=== PATIENT | female | born 1970 | race Caucasian/White ===

== ENCOUNTER 2016-09-15 12:24 | Inpatient (IN) | payer BC ==
[2016-09-15] MEDS ORDERED: 0.9 % SODIUM CHLORIDE 1,000 ML BAG IV ONE (12:39)
--- NOTE | 2016-09-15 12:48 | Emergency Department Record ---
History of Present Illness - General Chief Complaint: Abdominal Pain Stated Complaint: ABD PAIN Time Seen by Provider: 09/15/16 12:38 Source: Patient Mode of Arrival: Ambulatory Limitations: No limitations - History of Present Illness Initial Comments: 46 yo female presents with epigastric pain this week. She saw Dr Hooper as an outpatient. The patient has had labs on two occasions. Her Lipase was noted to be mildly elevated on 09/14 at 416. She had a CT scan on 09/14 as well that was read as negative for acute process. It was unremarkable for a cause of her pain. Dr Hooper repeated the labs today and her Lipase was increased to 426. He called, requesting hydration and re-evaluation. She has had her gallbladder removed in the past. Dr Hooper expressed a concern that it could be medication related. She rarely consumes alcohol. Her appetite is reduced with nausea and some vomiting that started Sunday. No blood in the vomit. She is having normal bowel movements. MD Complaint: Abdominal pain -: Days(s) Location: Epigastric Radiation: Epigastric, RUQ Migration to: Epigastric Severity: Moderate Quality: Aching Consistency: Constant Improves With: Nothing Worsens With: Eating Associated Symptoms: Anorexia, Vomiting - Related Data Home Medications Medication Instructions Recorded Confirmed Last Taken Desvenlafaxine Succinate [Pristiq 50 mg PO DAILY 11/28/14 09/15/16 01/03/15 ER] Nebivolol HCl [Bystolic] 5 mg PO DAILY 11/28/14 09/15/16 01/02/15 Pramipexole Di-HCl [Mirapex] 0.25 mg PO QHS 11/28/14 09/15/16 01/02/15 Sumatriptan Succinate [Imitrex] 4 mg SQ DAILY PRN 01/03/15 09/15/16 Unknown Esomeprazole Magnesium [Nexium] 20 mg PO DAILY 09/15/16 09/15/16 Unknown Liraglutide [Saxenda] 3 mg SQ DAILY 09/15/16 09/15/16 Unknown Allergies Allergy/AdvReac Type Severity Reaction Status Date / Time naproxen Allergy Severe seizures Verified 01/03/15 09:46 phenytoin sodium Allergy Severe bradycardia Verified 01/03/15 09:46 phenytoin sodium extended Allergy Severe bradycardia Verified 01/03/15 09:46 narcotics AdvReac Intermediate HEADACHE Uncoded 10/19/14 16:27 Review of Systems Constitutional: Denies: Chills, Fever, Malaise, Weakness Eyes: Denies: Eye discharge ENT: Denies: Congestion, Throat pain Respiratory: Denies: Cough, Dyspnea, Hemoptysis, Stridor, Wheezes Cardiovascular: Denies: Chest pain, Palpitations, Syncope Endocrine: Denies: Fatigue Gastrointestinal: Reports: Abdominal pain, Nausea, Vomiting. Denies: Diarrhea Genitourinary: Denies: Dysuria, Urgency Musculoskeletal: Denies: Arthralgia, Back pain, Joint swelling, Myalgia Skin: Denies: Bruising, Change in color, Rash Neurological: Denies: Headache, Vertigo Psychiatric: Denies: Anxiety Hematological/Lymphatic: Denies: Blood Clots, Easy bleeding, Easy bruising, Swollen glands Past Medical History - SOCIAL HISTORY Smoking Status: Never smoker - RESPIRATORY Hx Respiratory Disorders: Yes Hx Sleep Apnea: No (sleep study x 2-negative results) Hx of CPAP: No - CARDIOVASCULAR Hx Cardio Disorders: Yes Hx Deep Vein Thrombosis: No Hx Edema: Yes (sometimes rt prosthesis leg) Hx Hypertension: Yes (good control w med) - NEURO Hx Neuro Disorders: Yes Hx Headaches: Yes Hx of Migraines: Yes Hx Seizures: Yes (only after taking naprosyn) - GI Hx GI Disorders: Yes Hx Abdominal Pain: Yes (cramps due to menses) Hx Reflux: Yes - Hx Genitourinary Disorders: Yes Hx Kidney Stones: Yes (22yrs ago) - ENDOCRINE Hx Endocrine Disorders: No - MUSCULOSKELETAL Hx Musculoskeletal Disorders: Yes Hx Arthritis: Yes (knee) Comment:: had many injuries to right knee/ACL--prosthesis needed - PSYCH Hx Psych Problems: Yes Hx Depression: Yes (mild) - HEMATOLOGY/ONCOLOGY Hx Hematology/Oncology Disorders: Yes Hx Anemia: Yes Hx Blood Disorders: No Hx Bruising: No Hx Cancer: No Hx Clotting Problems: No Hx Unexplained Bleeding: No Hx Blood Transfusion Reaction: No Family Medical History Family Hx Comment (NOT TO BE USED IN PLACE OF ITEMS BELOW): Bleeding disorder w/ daughter Hx Cancer: Brother/Sister Hx HTN: Father, Mother Hx Resp Disorders: Father, Children Hx Seizures: Children, Brother/Sister Hx Stroke: Children Physical Exam - General General Appearance: Alert, Oriented x3, Cooperative, No acute distress Limitations: No limitations - Head Head exam: Atraumatic, Normocephalic, Normal inspection - Eye Eye exam: Normal appearance. negative: Conjunctival injection, Periorbital swelling, Scleral icterus - ENT ENT exam: Normal exam Ear exam: Normal external inspection Nasal Exam: Normal inspection Mouth exam: Normal external inspection Teeth exam: Normal inspection Throat exam: Normal inspection - Neck Neck exam: Normal inspection. negative: Lymphadenopathy - Respiratory Respiratory exam: Normal lung sounds bilaterally. negative: Respiratory distress - Cardiovascular Cardiovascular Exam: Regular rate, Normal rhythm, Normal heart sounds - GI/Abdominal GI/Abdominal exam: Soft, Tenderness (soft but some tenderness in the mid abdomen , epigastric area, lower abdomen is very soft and non tender.). negative: Distended - Rectal Rectal exam: Deferred - exam: Deferred - Extremities Extremities exam: Normal inspection, Full ROM, Normal capillary refill. negative: Tenderness - Back Back exam: Reports: Normal inspection, Full ROM. Denies: CVA tenderness (R), CVA tenderness (L), Muscle spasm, Paraspinal tenderness, Rash noted, Tenderness , Vertebral tenderness - Neurological Neurological exam: Alert, Oriented X3 - Psychiatric Psychiatric exam: Normal affect, Normal mood. negative: Agitated, Anxious - Skin Skin exam: Dry, Intact, Normal color, Warm Course - Reevaluation(s) Reevaluation #1: The outpatient labs and CT were reviewed as noted in the H and P The patient continues to have pain and nausea I recommend OBV for symptomatic treatment and recheck of labs again in 24 hours for pancreatitis. 09/15/16 14:47 Reevaluation #2: I Discussed the case with Jada Castillo of the admission service The patient will be admitted for IVF, nausea and pain control and recheck of labs tomorrow AM. 09/15/16 15:13 Disposition Disposition: Admit Clinical Impression: Dehydration Abdominal pain Qualifiers: Abdominal location: epigastric Qualified Code(s): R10.13 - Epigastric pain Pancreatitis Qualifiers: Chronicity: acute Pancreatitis type: unspecified pancreatitis type Acute pancreatitis complication: unspecified Qualified Code(s): K85.90 - Acute pancreatitis without necrosis or infection, unspecified Nausea & vomiting Qualifiers: Vomiting type: unspecified Vomiting Intractability: unspecified Qualified Code( s): R11.2 - Nausea with vomiting, unspecified Disposition: Still a Patient at [facility] Decision to Admit: Admit from ER Decision to Admit Date: 09/15/16 Decision to Admit Time: 14:49 Condition: (2) Stable Forms: Patient Portal Access Time of Disposition: 14:49
[2016-09-15] MEDS ORDERED: MORPHINE SULFATE 5 MG/ML PFS IVP ONE (13:14)
[2016-09-15] MEDS ORDERED: ONDANSETRON HCL IV 4 MG/2 ML VIAL IVP ONE (13:14)
[2016-09-15] MEDS: 0.9 % SODIUM CHLORIDE 1000ML 1,000 ML IV PRN (17:28)
[2016-09-15] MEDS: HYDROMORPHONE HCL 1 MG/ML CPJ IVP PRN ×2 (18:14→22:10)
[2016-09-16] MEDS: HYDROMORPHONE HCL 1 MG/ML CPJ IVP PRN ×2 (02:43→08:29)
[2016-09-16 06:10] LABS: BASO % 0.3 % (0-6); GRAN % 66.1 % (47-80); HEMOGLOBIN 13.1 gm/dl (11.6-16.0); LYMPH % 23.4 % (16-45); MEAN CELL VOLUME 90.9 fl (81-97); MEAN CORPUSCULAR HEMOGLOBIN 29.8 pg (27-33); MEAN CORPUSCULAR HGB CONC 32.8 g/dl (32-36); MEAN PLATELET VOLUME 8.4 fl (7.4-10.4); MONO % 8.2 % (0-9); PLATELET COUNT 262 K/uL (130-400); RED CELL DISTRIBUTION WIDTH 12.2 % (11.5-14.5); WHITE BLOOD COUNT W/O DIFF 6.4 K/uL (4.2-12.2)
[2016-09-16 06:21] LABS: ALB/GLOB RATIO 1.3 (1.1-1.8); ALBUMIN 3.6 gm/dL (3.5-5.0); ALKALINE PHOSPHATASE 43 U/L (38-126); ALT/SGPT 37 U/L (9-52); ANION GAP 6.1 (7-16); AST/SGOT 19 U/L (14-36); BILIRUBIN,TOTAL 1.06 mg/dL (0.2-1.3); BLOOD UREA NITROGEN 10 mg/dL (7-17); CARBON DIOXIDE 25.9 mmol/L (22-30); CREATININE 0.9 mg/dL (0.52-1.04); EST GLOMERULAR FILTRATION RATE > 60 ml/min; GLUCOSE,RANDOM 79 mg/dL (70-110); LIPASE 248 U/L (23-300); TOTAL PROTEIN 6.4 gm/dL (6.3-8.2)
[2016-09-16] MEDS ORDERED: PROCHLORPERAZINE 10 MG/2 ML VIAL IVP PRN (09:17)
[2016-09-16] MEDS ORDERED: RANITIDINE HCL 25 MG/ML 2ML VIAL IVP SCH (09:30)
[2016-09-16] MEDS ORDERED: PANTOPRAZOLE SODIUM IV 40 MG VIAL IV SCH (10:00)
[2016-09-16] MEDS: ENOXAPARIN 40 MG/0.4 ML SYR SC SCH (11:11)
[2016-09-16] MEDS: NEBIVOLOL 5 MG PO SCH (11:13)
[2016-09-16] MEDS: PRISTIQ 50 MG PO SCH (11:14)
[2016-09-16] MEDS: PANTOPRAZOLE SODIUM IV 40 MG VIAL IVP SCH ×2 (11:24→21:21)
[2016-09-16] MEDS ORDERED: MORPHINE SULFATE 5 MG/ML PFS IVP PRN (12:14)
--- NOTE | 2016-09-16 15:08 | History & Physical ---
History of Present Illness - Date of Service Date of Service for History & Physical: 09/16/16 - History of Present Illness Admitting Diagnosis: nausea, vomiting, pancreatitis History of Present Illness: 46yo female with CC of epigastric pain. She has history of HTN, migraines, GERD , seizure, anemia, and arthritis. Patient presented to the ED at her pcp, Dr. Hooper, request. She had been having epigastric pain over the past week that became progressively worse and she developed nausea with some vomiting. While in the ED, patient was noted to have had labs done by her PCP that day (09/15). Her cbc and cmp were unremarkable. She was noted to have some elevation in lipase at 426. Her pcp had ordered a CT abdomen on 09/14/16 which ED physician reviewed. There were no acute changes noted. Patient is also s/p cholecystectomy. She was given some zofran with minimal improvement of nausea and morphine with some improvement in abdominal pain. Patient's saxenda was held and she was admitted for intractable abdominal pain with nausea. 09/16/16- Patient states she continues to have deep epigastric pain. She states she is very tender to touch in that area. she says her nausea has improved, however, any time she tries even some clear liquids it returns and the pain in her abdomen gets worse. She had a normal bowel movement this morning. No diarrhea, black or bloody stools today or recently. Says she hasn't really been able to eat anything aside from one cup of jello and some chicken broth for the past 3 days. She reports worsening heartburn right at the beginning of the week just prior to the nausea and epigastric pain starting. She had been on prevacid for GERD for a long time and just switched to nexium. She has also been on her saxenda for almost a year now. She has never had side effects from it. she has held it for the past 3 days now. NO fevers, chills, cough, difficullty in breathing, headache, constipation, urinary pain. pcp: johanna Travel Screening - Travel/Exposure Within Last 30 Days Have you traveled within the last 30 days?: No - Travel/Exposure Within Last Year Have you traveled outside the [place] in the last year?: No - Additonal Travel Details Have you been exposed to anyone with a communicable illness?: No - Travel Symptoms Symptom Screening: None Review of Systems Constitutional: Denies: Chills, Fever, Malaise, Weakness Eyes: Denies: Eye discharge ENT: Denies: Congestion, Throat pain Respiratory: Denies: Cough, Dyspnea, Hemoptysis, Stridor, Wheezes Cardiovascular: Denies: Chest pain, Palpitations, Syncope Endocrine: Denies: Fatigue Gastrointestinal: Reports: Abdominal pain, Nausea, Vomiting. Denies: Diarrhea Genitourinary: Denies: Dysuria, Urgency Musculoskeletal: Denies: Arthralgia, Back pain, Joint swelling, Myalgia Skin: Denies: Bruising, Change in color, Rash Neurological: Denies: Headache, Vertigo Psychiatric: Denies: Anxiety Hematological/Lymphatic: Denies: Blood Clots, Easy bleeding, Easy bruising, Swollen glands Past Medical History - SOCIAL HISTORY Smoking Status: Never smoker Alcohol Use: Rare Drug Use: None - RESPIRATORY Hx Respiratory Disorders: Yes Hx Sleep Apnea: No (sleep study x 2-negative results) Hx of CPAP: No - CARDIOVASCULAR Hx Cardio Disorders: Yes Hx Edema: Yes (sometimes rt prosthesis leg) Hx Hypertension: Yes (good control w med) - NEURO Hx Neuro Disorders: Yes Hx Headaches: Yes Hx of Migraines: Yes Hx Seizures: Yes (only after taking naprosyn, and after donating plasma) - GI Hx GI Disorders: Yes Hx Abdominal Pain: Yes (cramps due to menses) Hx Reflux: Yes (prev prevacid, now nexium) - Hx Genitourinary Disorders: Yes Hx Kidney Stones: Yes (22yrs ago) - ENDOCRINE Hx Endocrine Disorders: No Hx Diabetes: No Hx Thyroid Disease: No - MUSCULOSKELETAL Hx Musculoskeletal Disorders: Yes Hx Arthritis: Yes (knee) Comment:: had many injuries to right knee/ACL--prosthesis needed - PSYCH Hx Psych Problems: Yes Hx Depression: Yes (mild) - HEMATOLOGY/ONCOLOGY Hx Hematology/Oncology Disorders: Yes Hx Anemia: Yes Hx Blood Disorders: No Hx Bruising: No Hx Cancer: No Hx Clotting Problems: No Hx Unexplained Bleeding: No Hx Blood Transfusion Reaction: No Family Medical History Any Significant Family History?: Yes Family Hx Comment (NOT TO BE USED IN PLACE OF ITEMS BELOW): Bleeding disorder w/ daughter Hx Cancer: Brother/Sister Hx HTN: Father, Mother Hx Resp Disorders: Father, Children Hx Seizures: Children, Brother/Sister Hx Stroke: Children H&P Meds/Allergies - Allergies Allergies: Allergies Allergy/AdvReac Type Severity Reaction Status Date / Time naproxen Allergy Severe seizures Verified 01/03/15 09:46 phenytoin sodium Allergy Severe bradycardia Verified 01/03/15 09:46 phenytoin sodium extended Allergy Severe bradycardia Verified 01/03/15 09:46 narcotics AdvReac Intermediate HEADACHE Uncoded 10/19/14 16:27 - Home Medications Home Medications Medication Instructions Recorded Confirmed Last Taken Desvenlafaxine Succinate [Pristiq 50 mg PO DAILY 11/28/14 09/15/16 1 Day Ago ER] 50 Nebivolol HCl [Bystolic] 5 mg PO DAILY 11/28/14 09/15/16 2 Days Ago 5 Pramipexole Di-HCl [Mirapex] 0.25 mg PO QHS 11/28/14 09/15/16 2 Days Ago 0.25 Sumatriptan Succinate [Imitrex] 4 mg SQ DAILY PRN 01/03/15 09/15/16 Unknown Esomeprazole Magnesium [Nexium] 20 mg PO DAILY 09/15/16 09/15/16 1 Day Ago 20 Liraglutide [Saxenda] 3 mg SQ DAILY 09/15/16 09/15/16 3 Days Ago - Active Medications Active Medications: Current Medications Enoxaparin Sodium (Lovenox) 40 mg SC DAILY [facility] Last Admin: 09/16/16 11:11 Dose: 40 mg Hydromorphone HCl (Dilaudid) 0.5 mg IVP Q4H PRN PRN Reason: Abdominal Pain Last Admin: 09/16/16 08:29 Dose: 0.5 mg Sodium Chloride () 1,000 mls @ 125 mls/hr IV .Q8H PRN PRN Reason: LARGE VOLUME IV Last Admin: 09/15/16 17:28 Dose: 125 mls/hr Morphine Sulfate (Morphine Sulfate) 5 mg IVP Q4HR PRN PRN Reason: Pain - Severe (8-10) Stop: 09/23/16 12:15 Last Admin: 09/16/16 12:21 Dose: 5 mg Ondansetron HCl (Zofran) 4 mg IVP Q4H PRN PRN Reason: NAUSEA Pantoprazole Sodium (Protonix Iv) 40 mg IVP BID [facility] Last Admin: 04/08/17 11:24 Dose: 40 mg Patient Own Med: Pristiq ( Desvenlafaxine) 50 Mg 1 each PO DAILY [facility] Last Admin: 09/16/16 11:14 Dose: 1 each Patient Own Med: Nebivolol (Bystolic) 5 Mg 1 each PO DAILY [facility] Last Admin: 09/16/16 11:13 Dose: 1 each Prochlorperazine Edisylate (Compazine) 10 mg IVP Q4H PRN PRN Reason: nausea Physical Exam - Vital Signs Vital Signs: Vital Signs - Last 24 Hrs Temp Pulse Pulse Resp BP BP Pulse Ox 09/16/16 08:38 16 09/16/16 08:00 98.2 F 62 18 135/66 98 09/15/16 20:04 65 16 09/15/16 20:00 98.5 F 58 L 18 113/70 95 09/15/16 16:18 98.1 F 65 16 142/75 97 09/15/16 16:13 57 L 20 122/70 97 - General General Appearance: Alert, Oriented x3, Cooperative, No acute distress Limitations: No limitations - Head Head exam: Atraumatic, Normocephalic, Normal inspection - Eye Eye exam: Normal appearance. negative: Conjunctival injection, Periorbital swelling, Scleral icterus - ENT ENT exam: Normal exam Ear exam: Normal external inspection Nasal Exam: Normal inspection Mouth exam: Normal external inspection Teeth exam: Normal inspection Throat exam: Normal inspection - Neck Neck exam: Normal inspection. negative: Lymphadenopathy - Respiratory Respiratory exam: Normal lung sounds bilaterally. negative: Respiratory distress - Cardiovascular Cardiovascular Exam: Regular rate, Normal rhythm, Normal heart sounds - GI/Abdominal GI/Abdominal exam: Soft, Normal bowel sounds, Tenderness (soft but some tenderness in the mid abdomen, epigastric area, lower abdomen is very soft and non tender.). negative: Distended - Rectal Rectal exam: Deferred - exam: Deferred - Extremities Extremities exam: Normal inspection, Full ROM, Normal capillary refill. negative: Tenderness - Back Back exam: Reports: Normal inspection, Full ROM. Denies: CVA tenderness (R), CVA tenderness (L), Muscle spasm, Paraspinal tenderness, Rash noted, Tenderness , Vertebral tenderness - Neurological Neurological exam: Alert, Oriented X3 - Psychiatric Psychiatric exam: Normal affect, Normal mood. negative: Agitated, Anxious - Skin Skin exam: Dry, Intact, Normal color, Warm Results - Labs Result Diagrams: 09/16/16 06:02 09/16/16 06:02 Labs Last 24 Hours: Laboratory Results - last 24 hr 09/16/16 09/16/16 09/16/16 06:02 06:02 07:42 WBC 6.4 RBC 4.40 Hgb 13.1 Hct 40.0 MCV 90.9 MCH 29.8 MCHC 32.8 RDW 12.2 Plt Count 262 MPV 8.4 Gran % 66.1 Lymphocytes % 23.4 Monocytes % 8.2 Eosinophils % 2.0 Basophils % 0.3 Sodium 139 Cancelled Potassium 4.6 Cancelled Chloride 107 Cancelled Carbon Dioxide 25.9 Cancelled Anion Gap 6.1 L Cancelled BUN 10 Cancelled Creatinine 0.9 Cancelled Estimated GFR > 60 Cancelled Random Glucose 79 Cancelled Calcium 8.2 L Cancelled Total Bilirubin 1.06 Cancelled AST 19 Cancelled ALT 37 Cancelled Alkaline Phosphatase 43 Cancelled Total Protein 6.4 Cancelled Albumin 3.6 Cancelled Globulin 2.8 Cancelled Albumin/Globulin Ratio 1.3 Cancelled Lipase 248 Cancelled VTE H&P Assessment - Risk for VTE Risk for VTE: Yes Risk Level: Moderate Risk Assessment Date: 09/16/16 Risk Assessment Time: 15:09 VTE Orders Placed or Will Be Placed: Yes Plan - Detailed Diagnosis and Plan (1) Abdominal pain Current Visit: Yes Status: Acute Qualifiers: Abdominal location: epigastric Qualified Code(s): R10.13 - Epigastric pain Base Code: R10.9 - UNSPECIFIED ABDOMINAL PAIN Comment: 09/16/16- Stable. Patient reports some improvement with the IV diluadid. She is still having sharp epigastric pain about a 5. CT scan on 09/14/16 negative for acute process. CBC and CMP unremarkable. HGB stable. Lipase down to 248 from 426. no evidence of pancreatitis on CT. may be inflammatory 2/2 vomiting. Differential includes duodenal vs gastric ulcer, adverse reaction to saxenda, vs partial sbo? vs other? -abdomen 2 view ordered -continue npo -continue IV fluid rescuscitation -start protonix 40mg IV BID for possible ulcer. will consider adding carafate based on response -continue morphine 5mg IV q4H for severe abdominal pain -continue to hold saxenda -vitals q8H -repeat labs qam (2) Nausea & vomiting Current Visit: Yes Status: Acute Qualifiers: Vomiting type: unspecified Vomiting Intractability: unspecified Qualified Code(s): R11.2 - Nausea with vomiting, unspecified Base Code: R11.2 - NAUSEA WITH VOMITING, UNSPECIFIED Comment: 09/16/16- Improved but not tolerating clears yet. -continue npo -will try compazine 10mg IV q6H prn nausea (3) Full code status Current Visit: Yes Status: Acute Base Code: Z78.9 - OTHER SPECIFIED HEALTH STATUS Comment: 09/16/16- patient is full code (4) DVT prophylaxis Current Visit: Yes Status: Acute Base Code: [id number] - Comment: 09/16/16- Patient is moderate risk for DVT with age and mobility -will add SCD's while in bed -will add lovenox SQ if longer stay is anticipated
[2016-09-17] MEDS: 0.9 % SODIUM CHLORIDE 1000ML 1,000 ML IV PRN (05:03)
[2016-09-17 06:24] LABS: BASO % 0.4 % (0-6); EOS % 1.8 % (0-6); GRAN % 64.7 % (47-80); HEMATOCRIT 39.1 % (35.0-47.0); LYMPH % 25.3 % (16-45); MEAN CELL VOLUME 89.1 fl (81-97); MEAN CORPUSCULAR HEMOGLOBIN 29.6 pg (27-33); MEAN CORPUSCULAR HGB CONC 33.2 g/dl (32-36); MEAN PLATELET VOLUME 9.1 fl (7.4-10.4); MONO % 7.8 % (0-9); PLATELET COUNT 238 K/uL (130-400); RED BLOOD COUNT 4.39 M/uL (3.80-5.40); RED CELL DISTRIBUTION WIDTH 11.9 % (11.5-14.5); WHITE BLOOD COUNT W/O DIFF 5.6 K/uL (4.2-12.2)
[2016-09-17 06:33] LABS: ALB/GLOB RATIO 1.3 (1.1-1.8); ALBUMIN 3.5 gm/dL (3.5-5.0); ALKALINE PHOSPHATASE 45 U/L (38-126); ALT/SGPT 34 U/L (9-52); AST/SGOT 17 U/L (14-36); BILIRUBIN,TOTAL 1.18 mg/dL (0.2-1.3); BLOOD UREA NITROGEN 10 mg/dL (7-17); CREATININE 0.9 mg/dL (0.52-1.04); EST GLOMERULAR FILTRATION RATE > 60 ml/min; GLUCOSE,RANDOM 76 mg/dL (70-110); TOTAL PROTEIN 6.3 gm/dL (6.3-8.2)
--- NOTE | 2016-09-17 09:36 | Physician Progress Note ---
Subjective - Date Date of Physician Progress Note: 09/17/16 Objective - Vital Signs Vital Signs: Vital Signs - Last 24 Hrs Temp Pulse Resp BP BP BP Pulse Ox 09/17/16 08:00 98.4 F 54 L 16 138/80 95 09/16/16 20:06 97.6 F 53 L 18 116/73 96 09/16/16 16:00 98.2 F 52 L 16 126/83 97 09/16/16 15:08 98.2 F 135/66 - General General Appearance: Alert, Oriented x3, Cooperative, No acute distress Limitations: No limitations - Head Head exam: Atraumatic, Normocephalic, Normal inspection - Eye Eye exam: Normal appearance. negative: Conjunctival injection, Periorbital swelling, Scleral icterus - ENT ENT exam: Normal exam Ear exam: Normal external inspection Nasal Exam: Normal inspection Mouth exam: Normal external inspection Teeth exam: Normal inspection Throat exam: Normal inspection - Neck Neck exam: Normal inspection. negative: Lymphadenopathy - Respiratory Respiratory exam: Normal lung sounds bilaterally. negative: Respiratory distress - Cardiovascular Cardiovascular Exam: Regular rate, Normal rhythm, Normal heart sounds - GI/Abdominal GI/Abdominal exam: Soft, Normal bowel sounds, Tenderness (soft but some tenderness in the mid abdomen, epigastric area, lower abdomen is very soft and non tender.). negative: Distended - Rectal Rectal exam: Deferred - exam: Deferred - Extremities Extremities exam: Normal inspection, Full ROM, Normal capillary refill. negative: Tenderness - Back Back exam: Reports: Normal inspection, Full ROM. Denies: CVA tenderness (R), CVA tenderness (L), Muscle spasm, Paraspinal tenderness, Rash noted, Tenderness , Vertebral tenderness - Neurological Neurological exam: Alert, Oriented X3 - Psychiatric Psychiatric exam: Normal affect, Normal mood. negative: Agitated, Anxious - Skin Skin exam: Dry, Intact, Normal color, Warm Assessment and Plan - Assessment and Plan (1) Abdominal pain Current Visit: Yes Status: Acute Qualifiers: Abdominal location: epigastric Qualified Code(s): R10.13 - Epigastric pain Base Code: R10.9 - UNSPECIFIED ABDOMINAL PAIN Comment: 09/16/16- Stable. Patient reports some improvement with the IV diluadid. She is still having sharp epigastric pain about a 5. CT scan on 09/14/16 negative for acute process. CBC and CMP unremarkable. HGB stable. Lipase down to 248 from 426. no evidence of pancreatitis on CT. may be inflammatory 2/2 vomiting. Differential includes duodenal vs gastric ulcer, adverse reaction to saxenda, vs partial sbo? vs other? -abdomen 2 view ordered -continue npo -continue IV fluid rescuscitation -start protonix 40mg IV BID for possible ulcer. will consider adding carafate based on response -continue morphine 5mg IV q4H for severe abdominal pain -continue to hold saxenda -vitals q8H -repeat labs qam (2) Nausea & vomiting Current Visit: Yes Status: Acute Qualifiers: Vomiting type: unspecified Vomiting Intractability: unspecified Qualified Code(s): R11.2 - Nausea with vomiting, unspecified Base Code: R11.2 - NAUSEA WITH VOMITING, UNSPECIFIED Comment: 09/16/16- Improved but not tolerating clears yet. -continue npo -will try compazine 10mg IV q6H prn nausea (3) Full code status Current Visit: Yes Status: Acute Base Code: Z78.9 - OTHER SPECIFIED HEALTH STATUS Comment: 09/16/16- patient is full code (4) DVT prophylaxis Current Visit: Yes Status: Acute Base Code: [id number] - Comment: 09/16/16- Patient is moderate risk for DVT with age and mobility -will add SCD's while in bed -will add lovenox SQ if longer stay is anticipated Results - Labs Result Diagrams: 09/17/16 05:45 09/17/16 05:45 Labs Last 24 Hours: Laboratory Results - last 24 hr 09/17/16 09/17/16 05:45 05:45 WBC 5.6 RBC 4.39 Hgb 13.0 Hct 39.1 MCV 89.1 MCH 29.6 MCHC 33.2 RDW 11.9 Plt Count 238 MPV 9.1 Gran % 64.7 Lymphocytes % 25.3 Monocytes % 7.8 Eosinophils % 1.8 Basophils % 0.4 Sodium 138 Potassium 4.0 Chloride 107 Carbon Dioxide 24.0 Anion Gap 7.0 BUN 10 Creatinine 0.9 Estimated GFR > 60 Random Glucose 76 Calcium 8.3 L Total Bilirubin 1.18 AST 17 ALT 34 Alkaline Phosphatase 45 Total Protein 6.3 Albumin 3.5 Globulin 2.8 Albumin/Globulin Ratio 1.3 DVT/PE Assessment - Risk for VTE Risk for VTE: No Risk Level: Moderate Risk Assessment Date: 09/16/16 Risk Assessment Time: 15:09 VTE Orders Placed or Will Be Placed: Yes - Active Medicaitons Current Medications: Current Medications Enoxaparin Sodium (Lovenox) 40 mg SC DAILY [facility] Last Admin: 09/16/16 11:11 Dose: 40 mg Hydromorphone HCl (Dilaudid) 0.5 mg IVP Q4H PRN PRN Reason: Abdominal Pain Last Admin: 09/16/16 08:29 Dose: 0.5 mg Sodium Chloride () 1,000 mls @ 125 mls/hr IV .Q8H PRN PRN Reason: LARGE VOLUME IV Last Admin: 09/17/16 05:03 Dose: 125 mls/hr Morphine Sulfate (Morphine Sulfate) 5 mg IVP Q4HR PRN PRN Reason: Pain - Severe (8-10) Stop: 09/23/16 12:15 Last Admin: 09/16/16 12:21 Dose: 5 mg Ondansetron HCl (Zofran) 4 mg IVP Q4H PRN PRN Reason: NAUSEA Pantoprazole Sodium (Protonix Iv) 40 mg IVP BID [facility] Last Admin: 09/16/16 21:21 Dose: 40 mg Patient Own Med: Pristiq ( Desvenlafaxine) 50 Mg 1 each PO DAILY [facility] Last Admin: 09/16/16 11:14 Dose: 1 each Patient Own Med: Nebivolol (Bystolic) 5 Mg 1 each PO DAILY [facility] Last Admin: 09/16/16 11:13 Dose: 1 each Prochlorperazine Edisylate (Compazine) 10 mg IVP Q4H PRN PRN Reason: nausea AMI Plan - Labs Result Diagrams: 09/17/16 05:45 09/17/16 05:45
[2016-09-17] MEDS: ENOXAPARIN 40 MG/0.4 ML SYR SC SCH (10:11)
[2016-09-17] MEDS: NEBIVOLOL 5 MG PO SCH (10:12)
[2016-09-17] MEDS: PRISTIQ 50 MG PO SCH (10:14)
[2016-09-17] MEDS: PANTOPRAZOLE SODIUM IV 40 MG VIAL IVP SCH ×2 (10:19→21:35)
--- NOTE | 2016-09-17 10:54 | Discharge Summary ---
Providers Discharge Summary Date: 09/18/16 Date of admission: 09/15/16 16:09 Expected Date of Discharge: 09/18/16 Attending physician: LIAN KU Primary care physician: ZOHREH FRITZ D.O. Physical Exam - Vital Signs Vital Signs: Vital Signs - Last 24 Hrs Temp Pulse Resp BP BP BP Pulse Ox 09/17/16 09:00 78 16 09/17/16 08:00 98.4 F 54 L 16 138/80 95 09/16/16 20:06 97.6 F 53 L 18 116/73 96 09/16/16 16:00 98.2 F 52 L 16 126/83 97 09/16/16 15:08 98.2 F 135/66 - General General Appearance: Alert, Oriented x3, Cooperative, No acute distress Limitations: No limitations - Head Head exam: Atraumatic, Normocephalic, Normal inspection - Eye Eye exam: Normal appearance. negative: Conjunctival injection, Periorbital swelling, Scleral icterus - ENT ENT exam: Normal exam Ear exam: Normal external inspection Nasal Exam: Normal inspection Mouth exam: Normal external inspection Teeth exam: Normal inspection Throat exam: Normal inspection - Neck Neck exam: Normal inspection. negative: Lymphadenopathy - Respiratory Respiratory exam: Normal lung sounds bilaterally. negative: Respiratory distress - Cardiovascular Cardiovascular Exam: Regular rate, Normal rhythm, Normal heart sounds - GI/Abdominal GI/Abdominal exam: Soft, Normal bowel sounds, Tenderness (minimal tenderness in the epigastric region). negative: Distended - Rectal Rectal exam: Deferred - exam: Deferred - Extremities Extremities exam: Normal inspection, Full ROM, Normal capillary refill. negative: Tenderness - Back Back exam: Reports: Normal inspection, Full ROM. Denies: CVA tenderness (R), CVA tenderness (L), Muscle spasm, Paraspinal tenderness, Rash noted, Tenderness , Vertebral tenderness - Neurological Neurological exam: Alert, Oriented X3 - Psychiatric Psychiatric exam: Normal affect, Normal mood. negative: Agitated, Anxious - Skin Skin exam: Dry, Intact, Normal color, Warm Hospitalization - Hospitalization Admission Diagnosis: nausea, vomiting, pancreatitis - Problem List/Discharge Diagnosis (1) Abdominal pain Current Visit: Yes Status: Acute Discharge Diagnosis: Abdominal location: epigastric Qualified Code(s): R10.13 - Epigastric pain Base Code: R10.9 - UNSPECIFIED ABDOMINAL PAIN Comment: 09/18/16- improving. Continues to tolerate full liquid diet and some solids. CT scan and abdominal series negative. CBC and CMP unremarkable. HGB stable. Most likely cause is duodenal vs gastric ulcer with significant improvement since starting protonix 40mg IV bid, vs adverse reaction to saxenda vs other. -continue protonix 40mg po bid for possible ulcer. -may take zantac 150mg po bid as needed for break through heartburn -continue to hold saxenda -orderd outpatient EGD. specialty clinic to call patient to set up -will contact Dr. Fritz's office to set up follow up appointment (2) Nausea & vomiting Current Visit: Yes Status: Acute Discharge Diagnosis: Vomiting type: unspecified Vomiting Intractability: unspecified Qualified Code(s): R11.2 - Nausea with vomiting, unspecified Base Code: R11.2 - NAUSEA WITH VOMITING, UNSPECIFIED Comment: 09/18/16- Improved. -continue to advance diet as tolerating -continue zofran 4mg ODT q4H prn nausea (3) Full code status Current Visit: Yes Status: Acute Base Code: Z78.9 - OTHER SPECIFIED HEALTH STATUS Comment: 09/18/16- patient is full code (4) DVT prophylaxis Current Visit: Yes Status: Acute Base Code: [id number] - Comment: 09/18/16- Patient was moderate risk for DVT with age and mobility -SCD's while in bed -lovenox 40mg SQ daily given for prophylaxis - Hospitalization Course Disposition: Home, Self-Care Hospital Course: 46yo female with CC of epigastric pain. She has history of HTN, migraines, GERD , seizure, anemia, and arthritis. Patient presented to the ED at her pcp, Dr. Fritz, request. She had been having epigastric pain over the past week that became progressively worse and she developed nausea with some vomiting. While in the ED, patient was noted to have had labs done by her PCP that day (09/15). Her cbc and cmp were unremarkable. She was noted to have some elevation in lipase at 426. Her pcp had ordered a CT abdomen on 09/14/16 which ED physician reviewed. There were no acute changes noted. Patient is also s/p cholecystectomy. She was given some zofran with minimal improvement of nausea and morphine with some improvement in abdominal pain. Patient's saxenda was held and she was admitted for intractable abdominal pain with nausea. 09/16/16- Patient states she continues to have deep epigastric pain. She states she is very tender to touch in that area. she says her nausea has improved, however, any time she tries even some clear liquids it returns and the pain in her abdomen gets worse. She had a normal bowel movement this morning. No diarrhea, black or bloody stools today or recently. Says she hasn't really been able to eat anything aside from one cup of jello and some chicken broth for the past 3 days. She reports worsening heartburn right at the beginning of the week just prior to the nausea and epigastric pain starting. She had been on prevacid for GERD for a long time and just switched to nexium. She has also been on her saxenda for almost a year now. She has never had side effects from it. she has held it for the past 3 days now. NO fevers, chills, cough, difficullty in breathing, headache, constipation, urinary pain. 09/17/16- Patient states she last had pain medication yesterday afternoon. Since that time her abdominal pain has been slowly resolving as well as her nausea. She has been tolerating her clear liquid diet very well. We then tried to advance her diet for lunch and patient had immediate return of her epigastric pain and nausea after eating some toast. She had one episode of watery stool. She did not have any emesis. 09/18/16- Patient states her ability to tolerate solid food is improving. Had a grilled cheese last night with some indigestion but no nausea and no vomiting. Ate an montserratian muffin this morning and did have some indigestion but no pain or nausea. Tolerating all liquids. Has had a few small volume, looser BM. no blood or black stool. No fevers, chills. Procedures: Imaging and X-Rays 09/16/16 09:16 ABDOMEN 2 VIEW [RAD] Stat Abnormal Labs: Abnormal Lab Results 09/16/16 09/17/16 Range/Units 06:02 05:45 Anion Gap 6.1 L (7-16) Calcium 8.2 L 8.3 L (8.5-10.1) mg/dL Condition at Discharge: (2) Stable Discharge Medications - Discharge Medications Prescriptions: Pantoprazole Sodium [Protonix] 40 mg PO BID #60 tab. Ranitidine HCl [Zantac] 150 mg PO BID PRN #60 tablet PRN Reason: Heartburn Ondansetron [Zofran Odt] 4 mg PO Q8H PRN #20 tab.rapdis PRN Reason: Nausea Home Medications: Ambulatory Orders Desvenlafaxine Succinate [Pristiq] 50 mg PO DAILY 11/28/14 [Last Taken 1 Day Ago 50] Nebivolol HCl [Bystolic] 5 mg PO DAILY 11/28/14 [Last Taken 2 Days Ago 5] Pramipexole Di-HCl [Mirapex] 0.25 mg PO QHS 11/28/14 [Last Taken 2 Days Ago 0.25 ] Sumatriptan Succinate [Imitrex] 4 mg SQ DAILY PRN 01/03/15 [Last Taken Unknown] Pantoprazole Sodium [Protonix] 40 mg PO BID #60 09/17/16 [Last Taken Unknown] Ondansetron [Zofran Odt] 4 mg PO Q8H PRN #20 tab.rapdis 09/18/16 [Last Taken Unknown] Ranitidine HCl [Zantac] 150 mg PO BID PRN #60 tablet 09/18/16 [Last Taken Unknown] Discharge Plan - Discharge Instructions Activity at Discharge: Resume Usual Activities As Tolerated Diet at Discharge: Other (gastritis/ulcer diet) Instructions: Diet for Ulcers and Gastritis (GEN) Additional Instructions: Please follow up with Dr. Fritz in next 5-7 days Upper scope has been ordered and [facility] should be contacting you to schedule Continue protonix 40mg twice daily Follow diet for gastritis and ulcers Please call with any questions Return to ED at any time for new or worsening symptoms
[2016-09-17] MEDS ORDERED: RANITIDINE HCL 150 MG TABLET PO ONE (11:45)
[2016-09-17] MEDS: ONDANSETRON HCL IV 4 MG/2 ML VIAL IVP PRN ×2 (11:52→19:04)
--- NOTE | 2016-09-17 20:36 | Physician Progress Note ---
Subjective - Date Date of Physician Progress Note: 09/17/16 - Subjective Subjective Comment: 09/17/16- Patient states she last had pain medication yesterday afternoon. Since that time her abdominal pain has been slowly resolving as well as her nausea. She has been tolerating her clear liquid diet very well. We then tried to advance her diet for lunch and patient had immediate return of her epigastric pain and nausea after eating some toast. She had one episode of watery stool. She did not have any emesis. Objective - Vital Signs Vital Signs: Vital Signs - Last 24 Hrs Temp Pulse Resp BP Pulse Ox 09/17/16 20:21 98.2 F 66 20 103/64 98 09/17/16 16:00 98.1 F 54 L 16 114/70 98 09/17/16 09:00 78 16 09/17/16 08:00 98.4 F 54 L 16 138/80 95 - General General Appearance: Alert, Oriented x3, Cooperative, No acute distress Limitations: No limitations - Head Head exam: Atraumatic, Normocephalic, Normal inspection - Eye Eye exam: Normal appearance. negative: Conjunctival injection, Periorbital swelling, Scleral icterus - ENT ENT exam: Normal exam Ear exam: Normal external inspection Nasal Exam: Normal inspection Mouth exam: Normal external inspection Teeth exam: Normal inspection Throat exam: Normal inspection - Neck Neck exam: Normal inspection. negative: Lymphadenopathy - Respiratory Respiratory exam: Normal lung sounds bilaterally. negative: Respiratory distress - Cardiovascular Cardiovascular Exam: Regular rate, Normal rhythm, Normal heart sounds - GI/Abdominal GI/Abdominal exam: Soft, Normal bowel sounds, Tenderness (soft but some tenderness in the mid abdomen, epigastric area, lower abdomen is very soft and non tender.). negative: Distended - Rectal Rectal exam: Deferred - exam: Deferred - Extremities Extremities exam: Normal inspection, Full ROM, Normal capillary refill. negative: Tenderness - Back Back exam: Reports: Normal inspection, Full ROM. Denies: CVA tenderness (R), CVA tenderness (L), Muscle spasm, Paraspinal tenderness, Rash noted, Tenderness , Vertebral tenderness - Neurological Neurological exam: Alert, Oriented X3 - Psychiatric Psychiatric exam: Normal affect, Normal mood. negative: Agitated, Anxious - Skin Skin exam: Dry, Intact, Normal color, Warm Assessment and Plan - Inpatient Certification Inpatient Certification: 09/17/16 20:35 risk factors: intractable abdominal pain, intractable nausea estimated length: 24-48H services: IV anti-emetics, IV pain medications - Assessment and Plan (1) Abdominal pain Current Visit: Yes Status: Acute Qualifiers: Abdominal location: epigastric Qualified Code(s): R10.13 - Epigastric pain Base Code: R10.9 - UNSPECIFIED ABDOMINAL PAIN Comment: 09/16/16- improved until diet was advanced to solids. She was tolerating clear liquids well. Abdominal films were negative for any acute process. CT scan on 09/14/16 negative for acute process. CBC and CMP unremarkable. HGB stable. Most likely cause is duodenal vs gastric ulcer with significant improvement since starting protonix 40mg IV bid, vs adverse reaction to saxenda vs other. -continue protonix 40mg IV BID for possible ulcer. zantac 150mg PO given for increased pain following solids. -continue morphine 5mg IV q4H for severe abdominal pain -continue to hold saxenda -vitals q8H -repeat labs qam -orderd outpatient EGD since no GI here until (2) Nausea & vomiting Current Visit: Yes Status: Acute Qualifiers: Vomiting type: unspecified Vomiting Intractability: unspecified Qualified Code(s): R11.2 - Nausea with vomiting, unspecified Base Code: R11.2 - NAUSEA WITH VOMITING, UNSPECIFIED Comment: 09/17/16- Improved. -contineu to advance diet as tolerating -continue zofran 4mg IV q8H prn nausea (3) Full code status Current Visit: Yes Status: Acute Base Code: Z78.9 - OTHER SPECIFIED HEALTH STATUS Comment: 09/17/16- patient is full code (4) DVT prophylaxis Current Visit: Yes Status: Acute Base Code: [id number] - Comment: 09/17/16- Patient is moderate risk for DVT with age and mobility -will add SCD's while in bed -lovenox 40mg SQ daily Results - Labs Result Diagrams: 09/17/16 05:45 09/17/16 05:45 Labs Last 24 Hours: Laboratory Results - last 24 hr 09/17/16 09/17/16 05:45 05:45 WBC 5.6 RBC 4.39 Hgb 13.0 Hct 39.1 MCV 89.1 MCH 29.6 MCHC 33.2 RDW 11.9 Plt Count 238 MPV 9.1 Gran % 64.7 Lymphocytes % 25.3 Monocytes % 7.8 Eosinophils % 1.8 Basophils % 0.4 Sodium 138 Potassium 4.0 Chloride 107 Carbon Dioxide 24.0 Anion Gap 7.0 BUN 10 Creatinine 0.9 Estimated GFR > 60 Random Glucose 76 Calcium 8.3 L Total Bilirubin 1.18 AST 17 ALT 34 Alkaline Phosphatase 45 Total Protein 6.3 Albumin 3.5 Globulin 2.8 Albumin/Globulin Ratio 1.3 DVT/PE Assessment - Risk for VTE Risk for VTE: No Risk Level: Moderate Risk Assessment Date: 09/16/16 Risk Assessment Time: 15:09 VTE Orders Placed or Will Be Placed: Yes - Active Medicaitons Current Medications: Current Medications Enoxaparin Sodium (Lovenox) 40 mg SC DAILY [facility] Last Admin: 09/17/16 10:11 Dose: 40 mg Hydromorphone HCl (Dilaudid) 0.5 mg IVP Q4H PRN PRN Reason: Abdominal Pain Last Admin: 09/16/16 08:29 Dose: 0.5 mg Morphine Sulfate (Morphine Sulfate) 5 mg IVP Q4HR PRN PRN Reason: Pain - Severe (8-10) Stop: 09/23/16 12:15 Last Admin: 09/16/16 12:21 Dose: 5 mg Ondansetron HCl (Zofran) 4 mg IVP Q4H PRN PRN Reason: NAUSEA Last Admin: 09/17/16 19:04 Dose: 4 mg Pantoprazole Sodium (Protonix Iv) 40 mg IVP BID [facility] Last Admin: 09/17/16 10:19 Dose: 40 mg Patient Own Med: Pristiq ( Desvenlafaxine) 50 Mg 1 each PO DAILY [facility] Last Admin: 09/17/16 10:14 Dose: 1 each Patient Own Med: Nebivolol (Bystolic) 5 Mg 1 each PO DAILY [facility] Last Admin: 09/17/16 10:12 Dose: 1 each Prochlorperazine Edisylate (Compazine) 10 mg IVP Q4H PRN PRN Reason: nausea AMI Plan - Labs Result Diagrams: 09/17/16 05:45 09/17/16 05:45
[2016-09-18 06:38] LABS: BASO % 0.2 % (0-6); EOS % 2.3 % (0-6); GRAN % 66.4 % (47-80); HEMATOCRIT 39.2 % (35.0-47.0); HEMOGLOBIN 13.3 gm/dl (11.6-16.0); LYMPH % 23.4 % (16-45); MEAN CELL VOLUME 87.9 fl (81-97); MEAN CORPUSCULAR HEMOGLOBIN 29.8 pg (27-33); MEAN CORPUSCULAR HGB CONC 33.9 g/dl (32-36); MEAN PLATELET VOLUME 9.3 fl (7.4-10.4); MONO % 7.7 % (0-9); PLATELET COUNT 252 K/uL (130-400); RED BLOOD COUNT 4.46 M/uL (3.80-5.40); RED CELL DISTRIBUTION WIDTH 11.8 % (11.5-14.5); WHITE BLOOD COUNT W/O DIFF 6.5 K/uL (4.2-12.2)
[2016-09-18 06:55] LABS: ALB/GLOB RATIO 1.2 (1.1-1.8); ALBUMIN 3.6 gm/dL (3.5-5.0); BILIRUBIN,TOTAL 0.55 mg/dL (0.2-1.3); BLOOD UREA NITROGEN 11 mg/dL (7-17); TOTAL PROTEIN 6.5 gm/dL (6.3-8.2)
[2016-09-18 07:11] LABS: ALKALINE PHOSPHATASE 47 U/L (38-126); ALT/SGPT 33 U/L (9-52); AST/SGOT 21 U/L (14-36); EST GLOMERULAR FILTRATION RATE > 60 ml/min; GLUCOSE,RANDOM 85 mg/dL (70-110)
[2016-09-18] MEDS: ONDANSETRON HCL IV 4 MG/2 ML VIAL IVP PRN (07:19)
[2016-09-18 07:23] LABS: ANION GAP 10.4 (7-16); CARBON DIOXIDE 24.6 mmol/L (22-30)
--- NOTE | 2016-09-18 09:14 | RADIOLOGY REPORT ---
EXAM: ABDOMEN, TWO VIEWS HISTORY: EPIGASTRIC PAIN AND ABDOMINAL PAIN. TECHNIQUE: Supine and upright AP views of the abdomen were obtained. Comparison: Previous abdominal CT scan dated 09/14/16. FINDINGS: There is residual oral contrast material within the colon. The abdominal gas pattern is nonobstructive. A few nondistended air filled small bowel loops are present within the right mid abdomen. There is no pneumoperitoneum. Surgical clips are present within the right upper quadrant consistent with previous cholecystectomy. There is no organomegaly or visible urinary tract calculus. Degenerative changes are present within the spine. IMPRESSION: 1. NO ACUTE INTRAABDOMINAL PATHOLOGY. 2. RESIDUAL ORAL CONTRAST MATERIAL WITHIN THE COLON. 3. STATUS POST CHOLECYSTECTOMY. JOB NUMBER: [id number] [facility]
[2016-09-18] MEDS: ENOXAPARIN 40 MG/0.4 ML SYR SC SCH (09:29)
[2016-09-18] MEDS: NEBIVOLOL 5 MG PO SCH (09:30)
[2016-09-18] MEDS: PRISTIQ 50 MG PO SCH (09:31)
[2016-09-18] MEDS: PANTOPRAZOLE SODIUM IV 40 MG VIAL IVP SCH (09:32)
[2016-09-18] MEDS ORDERED: DIPHENHYDRAMINE HCL 25 MG CAPSULE PO SCH (22:00)
== END 2016-09-18 11:19 | disposition home or self-care (01) | DRG 392 ==
LOC: ER 12:24 → MEDSURG 16:09 → OBSVTOIN 16:09
PROVIDERS: ADMIT Family Medicine; ATTEND Family Medicine
DX: R10.13 Epigastric pain (principal); R11.2 Nausea with vomiting, unspecified; Z78.9 Other specified health status
CPT/HCPCS: 74020; 80053; 83690; 85025; 96361; 96374; 96375; 99223; 99233; 99239; 99285; C9113; J1170; J1650; J2405; J7030

== ENCOUNTER 2016-09-22 08:34 | Day surgery (SDC) | payer BC ==
[2016-09-22] MEDS ORDERED: LIDOCAINE 2% MDV (20MG/ML) 20ML VIAL IV ONE (14:00)
[2016-09-22] MEDS ORDERED: FENTANYL PF 100MCG/2ML VIAL IV ONE (14:00)
[2016-09-22] MEDS ORDERED: PROPOFOL 10 MG/ML VIAL IV ONE (14:00)
--- NOTE | 2016-09-25 16:30 | Operative Note ---
DATE OF SURGERY: 09/22/2016 REQUESTING PHYSICIAN: Oziel Hooper DO SURGEON: Terrell Burns MD POSTOPERATIVE DIAGNOSES: 1. Normal esophagus. 2. Diffuse gastritis with small gastric polyps. 3. Normal duodenum. OPERATION: ESOPHAGOGASTRODUODENOSCOPY and exam. REASON FOR PROCEDURE: This is a 46-year-old female with a history of epigastric pain who was admitted to the hospital and was thought to have pancreatitis, and now presenting for esophagogastroduodenoscopy. SEDATION: Sedation as per anesthesia. Pulse oximetry was monitored throughout the duration of the procedure to maintain O2 saturation of 90% or greater. Supplemental oxygen was administered via nasal cannula. Cardiac and vital signs were monitored throughout the duration of the procedure and they were stable. PROCEDURE: Description of the procedure of esophagogastroduodenoscopy, risks and alternatives to the procedure including the risk of bleeding and perforation among others were explained to the patient who voiced understanding and decided to proceed. Physical examination was performed and the patient was found stable for sedation. The patient was then placed in the left lateral position and sedation was initiated. A plastic bite block was inserted into the oral cavity. A lubricated Olympus GIF-180 gastroscope was then placed through the posterior oropharynx and under direct visualization was advanced through the proximal esophagus without difficulty. The esophagus was carefully examined upon insertion of the gastroscope. The proximal, mid and distal esophageal mucosa appeared normal. The gastroscope was then advanced to the stomach. Serial examination of the stomach revealed diffuse erythema along the gastric body and antrum but no ulcers were noted. The gastroscope was then advanced to the descending duodenum without difficulty. The duodenal bulb and descending duodenal mucosa appeared normal. The gastroscope was then withdrawn into the stomach and retroflexion was performed. Multiple gastric polyps were noted. The gastroscope was then straightened and withdrawn, very carefully re-examining the gastric and esophageal mucosa and no other lesions were noted. Multiple duodenal and gastric biopsies were obtained. The patient remained with stable vital signs and was sent to the recovery room. PLAN AND RECOMMENDATIONS: 1. She is to continue on her proton pump inhibitors. 2. She will have labs including a lipase and amylase levels and I will be seeing her back in the office as needed. Thank you for allowing me to participate in the care of this patient. Terrell Burns MD CC: DO VANNESA JustinD
== END 2016-09-22 10:34 | disposition home or self-care (01) ==
LOC: HOP 08:34
PROVIDERS: ATTEND Internal Medicine Gastroenterology
DX: K29.50 Unspecified chronic gastritis without bleeding (principal); K31.7 Polyp of stomach and duodenum; I10 Essential (primary) hypertension
CPT/HCPCS: 43239; 00740; J3010

== ENCOUNTER 2017-06-07 06:21 | Emergency (ER) | payer BC ==
[2017-06-07] MEDS ORDERED: 0.9 % SODIUM CHLORIDE 1,000 ML BAG IV ONE (06:42)
[2017-06-07] MEDS ORDERED: ONDANSETRON HCL IV 4 MG/2 ML VIAL IV ONE (06:42)
[2017-06-07] MEDS ORDERED: MORPHINE SULFATE 5 MG/ML PFS IVP ONE (06:43)
--- NOTE | 2017-06-07 06:43 | Emergency Department Record ---
History of Present Illness - General Chief Complaint: Abdominal Pain Stated Complaint: ABDOMINAL PAIN Time Seen by Provider: 06/07/17 06:37 Source: Patient, Family Mode of Arrival: Ambulatory Limitations: No limitations - History of Present Illness Initial Comments: 46 yo female presents with abdominal pain that started around 7pm last night. The pain was initially mild. It was mostly on the right side and was associated with nausea and dry heaves. She reports she went to bed and woke around 2am with increased right lower abdominal pain. No fever. No dysuria. No diarrhea. No fevers. PCP is Dr Hooper. No diarrhea. MD Complaint: Abdominal pain Onset/Timin -: Hour(s) Location: RLQ Radiation: RLQ Migration to: RLQ Severity: Moderate Quality: Other Consistency: Constant, Getting worse Improves With: Nothing Worsens With: Nothing Associated Symptoms: Nausea - Related Data LMP (females 10-50): other Home Medications Medication Instructions Recorded Confirmed Last Taken Esomeprazole Magnesium [Nexium 20 mg PO DAILY 06/07/17 06/07/17 Unknown 24Hr] Previous Rx's Medication Instructions Recorded Ibuprofen [Motrin] 800 mg PO Q6H PRN #30 tab 06/07/17 Ondansetron [Zofran Odt] 4 mg PO Q8H PRN #20 tab.rapdis 06/07/17 Allergies Allergy/AdvReac Type Severity Reaction Status Date / Time naproxen Allergy Severe seizures Verified 01/03/15 09:46 phenytoin sodium Allergy Severe bradycardia Verified 01/03/15 09:46 phenytoin sodium extended Allergy Severe bradycardia Verified 01/03/15 09:46 codeine Allergy VOMITING Verified 06/07/17 06:29 hydrocodone Allergy VOMITING Verified 06/07/17 06:29 Travel Screening - Travel/Exposure Within Last 30 Days Have you traveled within the last 30 days?: No - Travel/Exposure Within Last Year Have you traveled outside the [place] in the last year?: No - Additonal Travel Details Have you been exposed to anyone with a communicable illness?: No - Travel Symptoms Symptom Screening: None Review of Systems Constitutional: Denies: Chills, Fever, Malaise, Weakness Eyes: Denies: Eye discharge ENT: Denies: Congestion, Throat pain Respiratory: Denies: Cough, Dyspnea, Hemoptysis, Stridor, Wheezes Cardiovascular: Denies: Chest pain, Palpitations, Syncope Endocrine: Denies: Fatigue, Polydipsia, Polyuria Gastrointestinal: Reports: Abdominal pain, Nausea, Vomiting. Denies: Constipation, Diarrhea, Hematemesis, Hematochezia, Melena Genitourinary: Denies: Dysuria, Frequency, Urgency Musculoskeletal: Denies: Arthralgia, Back pain, Joint swelling, Myalgia, Neck pain Skin: Denies: Bruising, Change in color, Rash Neurological: Denies: Confusion, Numbness, Weakness Psychiatric: Denies: Anxiety Hematological/Lymphatic: Denies: Blood Clots, Easy bleeding, Easy bruising, Swollen glands Past Medical History - SOCIAL HISTORY Smoking Status: Never smoker Alcohol Use: None Drug Use: None - RESPIRATORY Hx Respiratory Disorders: No Hx Sleep Apnea: No (sleep study x 2-negative results) Hx of CPAP: No - CARDIOVASCULAR Hx Cardio Disorders: Yes Hx Edema: Yes (sometimes rt prosthesis leg) Hx Hypertension: Yes (good control w med) - NEURO Hx Neuro Disorders: Yes Hx Headaches: Yes (hasn't had one in 2 yrs) Hx of Migraines: Yes Hx Seizures: Yes (only after taking naprosyn, and after donating plasma) - GI Hx GI Disorders: Yes Hx Reflux: Yes Hx Pancreatitis: Yes - Hx Genitourinary Disorders: Yes Hx Kidney Stones: Yes - ENDOCRINE Hx Endocrine Disorders: No Hx Diabetes: No Hx Thyroid Disease: No - MUSCULOSKELETAL Hx Musculoskeletal Disorders: Yes Hx Arthritis: Yes (knee) Comment:: had many injuries to right knee/ACL--prosthesis needed - PSYCH Hx Psych Problems: Yes Hx Depression: Yes (mild) - HEMATOLOGY/ONCOLOGY Hx Hematology/Oncology Disorders: Yes Hx Anemia: Yes Family Medical History Any Significant Family History?: Yes Family Hx Comment (NOT TO BE USED IN PLACE OF ITEMS BELOW): Bleeding disorder w/ daughter Hx Cancer: Brother/Sister Hx HTN: Father, Mother Hx Resp Disorders: Father, Children Hx Seizures: Children, Brother/Sister Hx Stroke: Children Physical Exam - General General Appearance: Alert, Oriented x3, Cooperative, No acute distress Limitations: No limitations - Head Head exam: Atraumatic, Normocephalic, Normal inspection - Eye Eye exam: Normal appearance. negative: Conjunctival injection, Scleral icterus - ENT ENT exam: Normal exam, Mucous membranes moist Ear exam: Normal external inspection Nasal Exam: Normal inspection Mouth exam: Normal external inspection Teeth exam: Normal inspection - Neck Neck exam: Normal inspection, Full ROM. negative: Tenderness - Respiratory Respiratory exam: Normal lung sounds bilaterally. negative: Respiratory distress, Rhonchi, Stridor, Wheezes - Cardiovascular Cardiovascular Exam: Regular rate, Normal rhythm, Normal heart sounds - GI/Abdominal GI/Abdominal exam: Soft, Tenderness (tender RLQ). negative: Distended, Guarding , Rebound - Rectal Rectal exam: Deferred - exam: Deferred - Extremities Extremities exam: Normal inspection, Full ROM, Normal capillary refill. negative: Tenderness - Back Back exam: Reports: Normal inspection, Full ROM. Denies: Muscle spasm, Rash noted, Tenderness - Neurological Neurological exam: Alert, Normal gait, Oriented X3, Reflexes normal - Psychiatric Psychiatric exam: Normal affect, Normal mood - Skin Skin exam: Dry, Intact, Normal color, Warm Course Vital Signs 06/07/17 06:23 Pulse Rate 71 Respiratory 20 Rate Blood Pressure 125/81 Pulse Ox 100 - Reevaluation(s) Reevaluation #1: 06/07/17 07:10 The labs were reviewed No acute changes on the CBC or CMP The case was signed to Dr Mendez for CT results Medical Decision Making - Lab Data Result diagrams: 06/07/17 06:25 06/07/17 06:25 Disposition Clinical Impression: Abdominal pain Disposition: Home, Self-Care Condition: (2) Stable Instructions: Abdominal Pain (ED) Additional Instructions: Return to ED if your symptoms worsen or if you have any concerns. Motrin 800 and Zofran as directed. Follow-up with your family doctor in 3-5 days as directed. Prescriptions: Ibuprofen [Motrin] 800 mg PO Q6H PRN #30 tab PRN Reason: Pain - Moderate (5-7) Ondansetron [Zofran Odt] 4 mg PO Q8H PRN #20 tab.rapdis PRN Reason: Nausea/Vomiting Forms: Patient Portal Access Quality - Quality Measures Quality Measures: N/A - Blood Pressure Screening Does Patient Have Any of the Following: No Blood Pressure Classification: Normal BP Reading Systolic Measurement: 103 Diastolic Measurement: 55 Screening for High Blood Pressure: < Normal BP, F/U Not Required > [[id number]] Pre-Hypertensive Follow-up Interventions: Referral to alternative/primary care provider.
[2017-06-07 06:50] LABS: BASO % 0.8 % (0-6); EOS % 6.4 % (0-6); GRAN % 60.9 % (47-80); HEMATOCRIT 40.8 % (35.0-47.0); HEMOGLOBIN 13.8 gm/dl (11.6-16.0); LYMPH % 25.3 % (16-45); MEAN CELL VOLUME 88.5 fl (81-97); MEAN CORPUSCULAR HEMOGLOBIN 29.9 pg (27-33); MEAN CORPUSCULAR HGB CONC 33.8 g/dl (32-36); MEAN PLATELET VOLUME 9.2 fl (7.4-10.4); MONO % 6.6 % (0-9); PLATELET COUNT 307 K/uL (130-400); RED BLOOD COUNT 4.61 M/uL (3.80-5.40); RED CELL DISTRIBUTION WIDTH 11.9 % (11.5-14.5); WHITE BLOOD COUNT W/O DIFF 6.4 K/uL (4.2-12.2)
[2017-06-07 07:07] LABS: ALBUMIN 4.2 g/dL (4.0-5.0); ALKALINE PHOSPHATASE 43 U/L (35-104); ALT/SGPT 26 U/L (<33); AST/SGOT 21 U/L (10.0-35.0); BLOOD UREA NITROGEN 9 mg/dL (6-20); CREATININE 0.9 mg/dL (0.5-0.9); EST GLOMERULAR FILTRATION RATE > 60 mL/min; GLUCOSE,RANDOM 108 mg/dL (74-109); LIPASE 59 U/L (13-60)
[2017-06-07 07:08] LABS: ALB/GLOB RATIO 1.4 (1.1-1.8); TOTAL PROTEIN 7.1 g/dL (6.6-8.7)
[2017-06-07 07:13] LABS: URINE APPEARANCE CLEAR; URINE BILIRUBIN NEGATIVE (NEGATIVE); URINE BLOOD NEGATIVE (NEGATIVE); URINE COLOR YELLOW; URINE GLUCOSE (UA) NEGATIVE (NEGATIVE); URINE KETONE NEGATIVE (NEGATIVE); URINE LEUKOCYTE ESTERASE NEGATIVE (NEGATIVE); URINE NITRITE NEGATIVE (NEGATIVE); URINE PROTEIN NEGATIVE (NEGATIVE); URINE UROBILINOGEN 0.2 E.U./dL (0.20 - 1.00)
[2017-06-07 07:17] LABS: HCG,QUALITATIVE URINE NEGATIVE (NEGATIVE)
--- NOTE | 2017-06-07 08:07 | Emergency Department Record ---
History of Present Illness - General Chief Complaint: Abdominal Pain Stated Complaint: ABDOMINAL PAIN Time Seen by Provider: 06/07/17 06:37 Source: Patient, Family Mode of Arrival: Ambulatory Limitations: No limitations - History of Present Illness MD Complaint: Abdominal pain Onset/Timin -: Hour(s) Location: RLQ Radiation: RLQ Migration to: RLQ Severity: Moderate Quality: Other Consistency: Constant, Getting worse Improves With: Nothing Worsens With: Nothing Associated Symptoms: Nausea - Related Data LMP (females 10-50): other Patient : No Home Medications Medication Instructions Recorded Confirmed Last Taken Esomeprazole Magnesium [Nexium 20 mg PO DAILY 06/07/17 06/07/17 Unknown 24Hr] Previous Rx's Medication Instructions Recorded Ibuprofen [Motrin] 800 mg PO Q6H PRN #30 tab 06/07/17 Ondansetron [Zofran Odt] 4 mg PO Q8H PRN #20 tab.rapdis 06/07/17 Allergies Allergy/AdvReac Type Severity Reaction Status Date / Time naproxen Allergy Severe seizures Verified 01/03/15 09:46 phenytoin sodium Allergy Severe bradycardia Verified 01/03/15 09:46 phenytoin sodium extended Allergy Severe bradycardia Verified 01/03/15 09:46 codeine Allergy VOMITING Verified 06/07/17 06:29 hydrocodone Allergy VOMITING Verified 06/07/17 06:29 Travel Screening - Travel/Exposure Within Last 30 Days Have you traveled within the last 30 days?: No - Travel/Exposure Within Last Year Have you traveled outside the [place] in the last year?: No - Additonal Travel Details Have you been exposed to anyone with a communicable illness?: No - Travel Symptoms Symptom Screening: None Review of Systems Constitutional: Denies: Chills, Fever, Malaise, Weakness Eyes: Denies: Eye discharge ENT: Denies: Congestion, Throat pain Respiratory: Denies: Cough, Dyspnea, Hemoptysis, Stridor, Wheezes Cardiovascular: Denies: Chest pain, Palpitations, Syncope Endocrine: Denies: Fatigue, Polydipsia, Polyuria Gastrointestinal: Reports: Abdominal pain, Nausea, Vomiting. Denies: Constipation, Diarrhea, Hematemesis, Hematochezia, Melena Genitourinary: Denies: Dysuria, Frequency, Urgency Musculoskeletal: Denies: Arthralgia, Back pain, Joint swelling, Myalgia, Neck pain Skin: Denies: Bruising, Change in color, Rash Neurological: Denies: Confusion, Numbness, Weakness Psychiatric: Denies: Anxiety Hematological/Lymphatic: Denies: Blood Clots, Easy bleeding, Easy bruising, Swollen glands Past Medical History - SOCIAL HISTORY Smoking Status: Never smoker Alcohol Use: None Drug Use: None - RESPIRATORY Hx Respiratory Disorders: No Hx Sleep Apnea: No (sleep study x 2-negative results) Hx of CPAP: No - CARDIOVASCULAR Hx Cardio Disorders: Yes Hx Edema: Yes (sometimes rt prosthesis leg) Hx Hypertension: Yes (good control w med) - NEURO Hx Neuro Disorders: Yes Hx Headaches: Yes (hasn't had one in 2 yrs) Hx of Migraines: Yes Hx Seizures: Yes (only after taking naprosyn, and after donating plasma) - GI Hx GI Disorders: Yes Hx Reflux: Yes Hx Pancreatitis: Yes - Hx Genitourinary Disorders: Yes Hx Kidney Stones: Yes - ENDOCRINE Hx Endocrine Disorders: No Hx Diabetes: No Hx Thyroid Disease: No - MUSCULOSKELETAL Hx Musculoskeletal Disorders: Yes Hx Arthritis: Yes (knee) Comment:: had many injuries to right knee/ACL--prosthesis needed - PSYCH Hx Psych Problems: Yes Hx Depression: Yes (mild) - HEMATOLOGY/ONCOLOGY Hx Hematology/Oncology Disorders: Yes Hx Anemia: Yes Family Medical History Any Significant Family History?: Yes Family Hx Comment (NOT TO BE USED IN PLACE OF ITEMS BELOW): Bleeding disorder w/ daughter Hx Cancer: Brother/Sister Hx HTN: Father, Mother Hx Resp Disorders: Father, Children Hx Seizures: Children, Brother/Sister Hx Stroke: Children Physical Exam - General Limitations: No limitations Course Vital Signs 06/07/17 06/07/17 06/07/17 06:23 06:41 07:12 Temperature 98.3 F Pulse Rate 71 Pulse Rate [ 57 L Pulse Ox Probe] Respiratory 20 20 Rate Blood Pressure 125/81 Blood Pressure 137/69 [Left Arm] Pulse Ox 100 96 - Reevaluation(s) Reevaluation #1: 06/07/17 07:51 Labs reviewed and are grossly unremarkable for an acute process. Patient was updated on her results thus far, reports improvement in her pain symptoms. Reevaluation #2: 06/07/17 09:17 CT Abdomen and Pelvis: No acute process Small amount free fluids pelvis, likely physiologic Normal appendix Small hemangioma liver Renal cysts Patient was updated on all results, reports better pain control with Toradol, will discharge home on Motrin 800 and Zofran as needed for her symptoms. Patient agrees with the plan as discussed and appears stable for discharge at this time. Medical Decision Making - Lab Data Result diagrams: 06/07/17 06:25 06/07/17 06:25 Lab Results 06/07/17 06/07/17 06/07/17 Range/Units 06:25 06:25 07:05 WBC 6.4 (4.2-12.2) K/uL RBC 4.61 (3.80-5.40) M/uL Hgb 13.8 (11.6-16.0) gm/dl Hct 40.8 (35.0-47.0) % MCV 88.5 (81-97) fl MCH 29.9 (27-33) pg MCHC 33.8 (32-36) g/dl RDW 11.9 (11.5-14.5) % Plt Count 307 (130-400) K/uL MPV 9.2 (7.4-10.4) fl Gran % 60.9 (47-80) % Lymphocytes % 25.3 (16-45) % Monocytes % 6.6 (0-9) % Eosinophils % 6.4 H (0-6) % Basophils % 0.8 (0-6) % Sodium 139 (136-145) mmol/L Potassium 4.2 (3.4-4.5) mmol/L Chloride 101 (98-107) mmol/L Carbon Dioxide 27.0 (22-29) mmol/L Anion Gap 11.0 (7-16) BUN 9 (6-20) mg/dL Creatinine 0.9 (0.5-0.9) mg/dL Estimated GFR > 60 mL/min Random Glucose 108 (74-109) mg/dL Calcium 9.1 (8.6-10.0) mg/dL Total Bilirubin 0.40 (0.2-1.0) mg/dL AST 21 (10.0-35.0) U/L ALT 26 (<33) U/L Alkaline Phosphatase 43 (35-104) U/L Total Protein 7.1 (6.6-8.7) g/dL Albumin 4.2 (4.0-5.0) g/dL Globulin 2.9 (1.4-4.8) gm/dL Albumin/Globulin Ratio 1.4 (1.1-1.8) Lipase 59 (13-60) U/L Urine Color Yellow Urine Appearance Clear Urine pH 7.5 (5.0-8.0) Ur Specific [place] 1.010 (1.002-1.030) Urine Protein Negative (NEGATIVE) Urine Glucose (UA) Negative (NEGATIVE) Urine Ketones Negative (NEGATIVE) Urine Blood Negative (NEGATIVE) Urine Nitrite Negative (NEGATIVE) Urine Bilirubin Negative (NEGATIVE) Urine Urobilinogen 0.2 (0.20 - 1.00) E.U./dL Ur Leukocyte Esterase Negative (NEGATIVE) Urine HCG, Qual Negative (NEGATIVE) Disposition Disposition: Discharge Clinical Impression: Abdominal pain Qualifiers: Abdominal location: right lower quadrant Qualified Code(s): R10.31 - Right lower quadrant pain Disposition: Home, Self-Care Condition: (2) Stable Instructions: Abdominal Pain (ED) Additional Instructions: Return to ED if your symptoms worsen or if you have any concerns. Motrin 800 and Zofran as directed. Follow-up with your family doctor in 3-5 days as directed. Prescriptions: Ibuprofen [Motrin] 800 mg PO Q6H PRN #30 tab PRN Reason: Pain - Moderate (5-7) Ondansetron [Zofran Odt] 4 mg PO Q8H PRN #20 tab.rapdis PRN Reason: Nausea/Vomiting Forms: Patient Portal Access Time of Disposition: 09:20 Quality - Quality Measures Quality Measures: N/A - Blood Pressure Screening Does Patient Have Any of the Following: No Blood Pressure Classification: Pre-Hypertensive BP Reading Systolic Measurement: 125 Diastolic Measurement: 81 Screening for High Blood Pressure: < Pre-Hypertensive BP, F/U Documented > [ G8950] Pre-Hypertensive Follow-up Interventions: Referral to alternative/primary care provider.
[2017-06-07] MEDS ORDERED: ONDANSETRON HCL IV 4 MG/2 ML VIAL IVP ONE (08:33)
[2017-06-07] MEDS ORDERED: HYOSCYAMINE SULFATE ODT 0.125 MG TAB.SUBL SL ONE (08:33)
--- NOTE | 2017-06-07 15:36 | CT SCAN REPORT ---
EXAM: CT SCAN ABDOMEN/PELVIS W CONTRAST HISTORY: RIGHT LOWER QUADRANT FOR PAIN FOR 12 HOURS, HISTORY OF CHOLECYSTECTOMY AND LAMINECTOMY. TECHNIQUE: Axial CT scan of the abdomen and pelvis performed following the intravenous administration of 100 mL of Omnipaque-300 as the IV contrast. No oral contrast utilized at the referring physician's request. COMPARISON: Prior CT abdomen and pelvis, 11/29/14. FINDINGS: Surgical clips in the gallbladder fossa as before, consistent with cholecystectomy. Tiny low-attenuation right lobe of the liver appears unchanged from before and may be a tiny hemangioma. No definite splenic, adrenal, or pancreatic mass identified. A couple of tiny low-attenuation masses, right kidney, are unchanged from 11/29/14 and are presumably a couple of tiny renal cysts. Evaluation of the bowel is very limited without oral contrast. I believe the appendix is visualized, however, and appears of normal caliber with no appendicitis identified. A very small amount of free fluid in the pelvis may simply be physiologic in nature. No free intraperitoneal air identified. Some hypertrophic spurring in the spine with facet joint arthropathy in the lumbar spine and with prominent spurring in the lower thoracic spine. Mild thoracolumbar curve convex to the right. IMPRESSION: 1. POSTOP CHOLECYSTECTOMY. 2. THERE ARE PROBABLY A COUPLE OF TINY RIGHT RENAL CYSTS UNCHANGED FROM BEFORE AND ALSO A SMALL LOW-ATTENUATION FOCUS IN THE LIVER, PROBABLY A SMALL HEMANGIOMA BEFORE. 3. APPENDIX VISUALIZED AND APPEARS NEGATIVE. 4. DEGENERATIVE CHANGE IN THE SPINE. 5. VERY SMALL AMOUNT OF FREE FLUID IN THE PELVIS MAY SIMPLY BE PHYSIOLOGIC. NO FREE AIR EVIDENT. 6. VERY SMALL PERIUMBILICAL ANTERIOR ABDOMINAL WALL HERNIA CONTAINING ADIPOSE TISSUE BUT NO BOWEL. JOB NUMBER: [id number] [facility]
== END 2017-06-07 09:30 | disposition home or self-care (01) ==
LOC: ER 06:21
DX: R10.31 Right lower quadrant pain (principal); R11.0 Nausea
CPT/HCPCS: 99284 ×2; 96374; 96375; 83690; 85025; 80053; 81003; 81025; 74177; Q9967; J1980; J2405; J2270; J7030

== ENCOUNTER 2018-10-14 15:28 | Emergency (ER) | payer BC ==
[2018-10-14] MEDS ORDERED: HYDROCODONE/APAP 5/325MG TABLET PO ONE (17:34)
--- NOTE | 2018-10-14 17:38 | Emergency Department Record ---
History of Present Illness - General Chief complaint: Lower Extremity Pain Stated complaint: RT LEG PAIN Time Seen by Provider: 10/14/18 15:50 Source: Patient Mode of Arrival: Ambulatory Limitations: No limitations - History of Present Illness Initial comments: pt states she twisted her knee yesterday and has had pain the r side of the knee going down the leg. she had a knee repacement 7yrs ago MD Complaint: Extremity pain, Extremity swelling Onset/Timin -: Days(s) Location: Right, Knee History of Same: No Radiation: Distal Severity scale (1-10): 8 Quality: Aching Consistency: Constant Improves with: Nothing Worsens with: Nothing Associated Symptoms: Denies other symptoms - Related Data Home Medications Medication Instructions Recorded Confirmed Last Taken Cholecalciferol (Vitamin D3) 2,000 unit PO 10/14/18 Unknown [Vitamin D3] Pramipexole Di-HCl [Mirapex] 0.5 mg PO 10/14/18 Unknown Venlafaxine HCl [Effexor] 75 mg PO 10/14/18 10/14/18 Unknown Previous Rx's Medication Instructions Recorded Ibuprofen [Motrin] 800 mg PO Q6H PRN #30 tab 06/07/17 Allergies Allergy/AdvReac Type Severity Reaction Status Date / Time naproxen Allergy Severe seizures Verified 10/14/18 15:43 phenytoin [From Dilantin] Allergy Severe heart Verified 10/14/18 15:44 stopped codeine AdvReac VOMITING Verified 10/14/18 15:44 hydrocodone AdvReac VOMITING Verified 10/14/18 15:44 Travel Screening - Travel/Exposure Within Last 30 Days Have you traveled within the last 30 days?: No Review of Systems Reviewed: No additional complaints except as noted below Constitutional: Reports: As per HPI. Denies: Chills, Fever, Malaise, Night sweats, Weakness, Weight change Eyes: Reports: As per HPI. Denies: Eye discharge, Eye pain, Photophobia, Vision change ENT: Reports: As per HPI. Denies: Congestion, Dental pain, Ear pain, Epistaxis , Hearing loss, Throat pain Respiratory: Reports: As per HPI. Denies: Cough, Dyspnea, Hemoptysis, Stridor, Wheezes Cardiovascular: Reports: As per HPI. Denies: Arrhythmia, Chest pain, Dyspnea on exertion, Edema, Murmurs, Orthopnea, Palpitations, Paroxysmal nocturnal dyspnea, Rheumatic Fever, Syncope Endocrine: Reports: As per HPI. Denies: Fatigue, Heat or cold intolerance, Polydipsia, Polyuria Gastrointestinal: Reports: As per HPI. Denies: Abdominal pain, Constipation, Diarrhea, Hematemesis, Hematochezia, Melena, Nausea, Vomiting Genitourinary: Reports: As per HPI. Denies: Abnormal menses, Discharge, Dyspareunia, Dysuria, Frequency, Hematuria, Incontinence, Retention, Urgency Musculoskeletal: Reports: As per HPI. Denies: Arthralgia, Back pain, Gout, Joint swelling, Myalgia, Neck pain Skin: Reports: As per HPI. Denies: Bruising, Change in color, Change in hair/ nails, Lesions, Pruritus, Rash Neurological: Reports: As per HPI. Denies: Abnormal gait, Confusion, Headache, Numbness, Paresthesias, Seizure, Tingling, Tremors, Vertigo, Weakness Psychiatric: Reports: As per HPI. Denies: Anxiety, Auditory hallucinations, Depression, Homicidal thoughts, Suicidal thoughts, Visual hallucinations Hematological/Lymphatic: Reports: As per HPI. Denies: Anemia, Blood Clots, Easy bleeding, Easy bruising, Swollen glands Past Medical History - SOCIAL HISTORY Smoking Status: Never smoker Alcohol Use: None Drug Use: None - RESPIRATORY Hx Respiratory Disorders: No Hx Sleep Apnea: No Hx of CPAP: No - CARDIOVASCULAR Hx Cardio Disorders: Yes Hx Edema: Yes Hx Hypertension: Yes - NEURO Hx Neuro Disorders: Yes Hx Headaches: Yes Hx of Migraines: Yes Hx Seizures: Yes - GI Hx GI Disorders: Yes Hx Reflux: Yes Hx Pancreatitis: Yes - Hx Genitourinary Disorders: Yes Hx Kidney Stones: Yes - ENDOCRINE Hx Endocrine Disorders: No Hx Diabetes: No Hx Thyroid Disease: No - MUSCULOSKELETAL Hx Musculoskeletal Disorders: Yes Hx Arthritis: Yes (knee) - PSYCH Hx Psych Problems: Yes Hx Depression: Yes (mild) - HEMATOLOGY/ONCOLOGY Hx Hematology/Oncology Disorders: Yes Hx Anemia: Yes Family Medical History Any Significant Family History?: Yes Family Hx Comment (NOT TO BE USED IN PLACE OF ITEMS BELOW): Bleeding disorder w/ daughter Hx Cancer: Brother/Sister Hx HTN: Father, Mother Hx Resp Disorders: Father, Children Hx Seizures: Children, Brother/Sister Hx Stroke: Children Physical Exam - General General Appearance: Alert, Oriented x3, Cooperative, Mild distress - Head Head exam: Normal inspection - Eye Eye exam: Normal appearance, PERRL, EOMI Pupils: Normal accommodation - ENT ENT exam: Normal exam, Mucous membranes moist, Normal external ear exam, Normal orophraynx Ear exam: Normal external inspection. negative: External canal tenderness Nasal Exam: Normal inspection. negative: Discharge, Sinus tenderness Mouth exam: Normal external inspection, Tongue normal Teeth exam: Normal inspection. negative: Dental caries Throat exam: Normal inspection. negative: Tonsillar erythema, Tonsillar exudate - Neck Neck exam: Normal inspection, Full ROM. negative: Tenderness - Respiratory Respiratory exam: Normal lung sounds bilaterally. negative: Respiratory distress - Cardiovascular Cardiovascular Exam: Regular rate, Normal rhythm, Normal heart sounds - GI/Abdominal GI/Abdominal exam: Soft, Normal bowel sounds. negative: Tenderness - Rectal Rectal exam: Deferred - exam: Deferred - Extremities Extremities exam: Normal inspection, Full ROM, Normal capillary refill, Tenderness Image of Full Body: 1 - tender - Back Back exam: Reports: Normal inspection, Full ROM. Denies: Muscle spasm, Rash noted, Tenderness - Neurological Neurological exam: Alert, CN II-XII intact, Normal gait, Oriented X3 - Psychiatric Psychiatric exam: Normal affect, Normal mood - Skin Skin exam: Dry, Intact, Normal color, Warm Course Vital Signs 10/14/18 15:39 Temperature 97.7 F Pulse Rate 72 Respiratory 20 Rate Blood Pressure 156/85 Pulse Ox 95 Disposition Disposition: Discharge Clinical Impression: Fracture, fibula, proximal Qualifiers: Encounter type: initial encounter Fracture type: closed Fracture morphology: other fracture Laterality: right Qualified Code(s): S82.831A - Other fracture of upper and lower end of right fibula, initial encounter for closed fracture Disposition: Home, Self-Care Condition: (1) Good Instructions: Leg Fracture (ED) Additional Instructions: follow up with orthopedic doctor. return sooner if worse. ice and elevate. motrin with food as needed Referrals: BILL FLORES [DOCTOR OF OSTEOPATH] - [facility] Specialty Clinics [Provider Group] Quality - Quality Measures Quality Measures: N/A - Blood Pressure Screening Does Patient Have Any of the Following: No Blood Pressure Classification: Pre-Hypertensive BP Reading Systolic Measurement: 156 Diastolic Measurement: 85 Screening for High Blood Pressure: < Pre-Hypertensive BP, F/U Documented > [ G8950] Pre-Hypertensive Follow-up Interventions: Follow-up with rescreen every year.
--- NOTE | 2018-10-17 07:36 | RADIOLOGY REPORT ---
EXAM: RIGHT KNEE HISTORY: PATIENT TWISTED HER RIGHT KNEE YESTERDAY AND NOW HAS PAIN IN THE OUTSIDE OF HER RIGHT KNEE. HAD A TOTAL RIGHT KNEE REPLACEMENT SEVEN YEARS AGO. TECHNIQUE: Five views of the right knee were obtained. Comparison: None. Encounter: Initial. FINDINGS: The patient is postop right TKA including patellar resurfacing. The components appear in good position. There are several small calcifications along the lateral aspect of the knee joint which are nonspecific although probably chronic in nature. Comparison with old films would be useful to confirm, however, there also appears to be a linear radiolucency involving the head of the fibula likely representing an undisplaced acute fracture. There is probably a small joint effusion present as well. IMPRESSION: 1. POSTOP RIGHT TKA. 2. SEVERAL CHRONIC APPEARING BONY DENSITIES ALONG THE KNEE. COMPARISON WITH OLD FILMS WOULD BE USEFUL TO CONFIRM IF THESE ARE INDEED CHRONIC. 3. APPEARANCE QUITE SUSPICIOUS FOR AN UNDISPLACED FRACTURE OF THE RIGHT FIBULAR HEAD PARTICULARLY SEEN ALONG THE LATERAL MARGIN. CORRELATION WITH POINT TENDERNESS SUGGESTED. JOB NUMBER: [id number] [facility]
== END 2018-10-14 18:00 | disposition home or self-care (01) ==
LOC: ER 15:28
DX: S82.831A Other fracture of upper and lower end of right fibula, initial encounter for closed fracture (principal); X50.1XXA Overexertion from prolonged static or awkward postures, initial encounter; I10 Essential (primary) hypertension; Z96.651 Presence of right artificial knee joint
CPT/HCPCS: 99283; 99284

== ENCOUNTER 2019-06-06 11:56 | Emergency (ER) | payer OTHER ==
--- NOTE | 2019-06-06 12:20 | Emergency Department Record ---
History of Present Illness - General Chief Complaint: Chest Pain Stated Complaint: CHEST PAIN Time Seen by Provider: 06/06/19 12:19 Source: Patient Mode of Arrival: Ambulatory Limitations: No limitations - History of Present Illness Initial Comments: The patient is here due to L chest heaviness off and on today starting about 3 hours ago. She describes the heaviness as mild to moderate and nonradiating. It has been intermittent for the last 3 hours and lasts for 5-10 minutes at a time. It then will be gone for 20-30 minutes and then returns. There is no SOB, SRIKANTH, or sweating with it but she is having nausea and lightheadedness. The patient only has HTN as a cardiac risk factor. She states the heaviness is not related to exertion and she has had no recent illnesses. Also presently the patient is symptoms free with no pain, heaviness or any discomfort. MD Complaint: Chest pain Onset/Timin -: Hour(s) Onset: Awoke with symptoms Pain Location: Substernal Severity: Moderate Severity scale (1-10): 7 Quality: Aching, Heaviness Consistency: Constant, Intermittent - Related Data Home Medications Medication Instructions Recorded Confirmed Last Taken Esomeprazole Magnesium [Nexium] 20 mg PO DAILY 06/06/19 06/06/19 1 Day Ago ~06/05/19 Previous Rx's Medication Instructions Recorded Ibuprofen [Motrin] 800 mg PO Q6H PRN #30 tab 06/07/17 Allergies Allergy/AdvReac Type Severity Reaction Status Date / Time naproxen Allergy Severe seizures Verified 06/06/19 12:07 phenytoin [From Dilantin] Allergy Severe heart Verified 06/06/19 12:07 stopped codeine AdvReac VOMITING Verified 06/06/19 12:07 hydrocodone AdvReac VOMITING Verified 06/06/19 12:07 Travel Screening - Travel/Exposure Within Last 30 Days Have you traveled within the last 30 days?: No - Travel/Exposure Within Last Year Have you traveled outside the [place] in the last year?: No - Additonal Travel Details Have you been exposed to anyone with a communicable illness?: No - Travel Symptoms Symptom Screening: None Review of Systems Constitutional: Denies: Chills, Fever Eyes: Denies: Eye discharge ENT: Denies: Congestion Respiratory: Denies: Cough, Dyspnea Cardiovascular: Reports: Chest pain. Denies: Dyspnea on exertion Endocrine: Denies: Fatigue Gastrointestinal: Denies: Diarrhea, Vomiting Genitourinary: Denies: Dysuria Musculoskeletal: Denies: Arthralgia Past Medical History - SOCIAL HISTORY Smoking Status: Never smoker Alcohol Use: Rare Drug Use: None - RESPIRATORY Hx Respiratory Disorders: No Hx Sleep Apnea: No Hx of CPAP: No - CARDIOVASCULAR Hx Cardio Disorders: Yes Hx Edema: Yes (restless) Hx Hypertension: Yes - NEURO Hx Neuro Disorders: Yes Hx Headaches: Yes Hx of Migraines: Yes Hx Seizures: Yes (last 2011) - GI Hx GI Disorders: Yes Hx Reflux: Yes Hx Pancreatitis: Yes - Hx Genitourinary Disorders: Yes Hx Kidney Stones: Yes - ENDOCRINE Hx Endocrine Disorders: No Hx Diabetes: No Hx Thyroid Disease: No - MUSCULOSKELETAL Hx Musculoskeletal Disorders: Yes Hx Arthritis: Yes (knee) - PSYCH Hx Psych Problems: Yes Hx Depression: Yes (mild) - HEMATOLOGY/ONCOLOGY Hx Hematology/Oncology Disorders: Yes Hx Anemia: Yes Family Medical History Any Significant Family History?: Yes Family Hx Comment (NOT TO BE USED IN PLACE OF ITEMS BELOW): Bleeding disorder w/daughter liproprotien little A Hx Cancer: Brother/Sister Hx HTN: Father, Mother Hx Resp Disorders: Father, Children Hx Seizures: Children, Brother/Sister Hx Stroke: Children Physical Exam - General General Appearance: Alert, Oriented x3, Cooperative, No acute distress - Head Head exam: Atraumatic, Normocephalic, Normal inspection - Eye Eye exam: Normal appearance, PERRL - ENT Throat exam: Normal inspection. negative: Tonsillar erythema, Tonsillar exudate - Neck Neck exam: Normal inspection, Full ROM. negative: Tenderness - Respiratory Respiratory exam: Normal lung sounds bilaterally. negative: Respiratory distress - Cardiovascular Cardiovascular Exam: Regular rate, Normal rhythm. negative: Diastolic murmur, Systolic murmur - GI/Abdominal GI/Abdominal exam: Soft, Normal bowel sounds. negative: Tenderness - Extremities Extremities exam: Normal inspection, Full ROM, Normal capillary refill. negat allan: Tenderness - Neurological Neurological exam: Alert, Normal gait. negative: Abnormal gait, Motor sensory deficit - Psychiatric Psychiatric exam: negative: Anxious Course - Reevaluation(s) Reevaluation #1: The patient is doing very well at this time. She denies any more pain or pressure or any sweating or SOB. I did discuss the neg EKG and cardiac enzyme tests. Due to the patient's age and nature of her complaints I did recommend a short stay admission for cardiac monitoring and further testing but she is refusing. I did explain to the patient the risks of refusing are that she could go home and have an KS, stroke, become disabled and even . The patient fully understands and accepts the risks and presently has proper decision making capac ity. She understands we cannot be held liable for NOT admitting and working up the CP further due to her refusal. She is to see her PCP early next week for recheck and to return to the ER for any worsening symptoms. 06/06/19 14:50 Medical Decision Making - Data Complexity MDM Data: Labs Ordered and/or Reviewed, X-Ray Ordered and/or Reviewed, EKG Ordered and/or Reviewed - Lab Data Result diagrams: 06/06/19 12:13 06/06/19 12:13 - EKG Data -: EKG Interpreted by Me EKG: No Acute Changes, Normal EKG - Radiology Data Radiology results: Report reviewed (CXR: Neg.) Disposition Disposition: Discharge Clinical Impression: Chest pain, atypical Disposition: Home, Self-Care Condition: (2) Stable Instructions: Chest Pain (ED) Additional Instructions: Please continue your regular medicines and please see your family doctor next week for recheck. Return to the ER for any new or worsening symptoms. Forms: Patient Portal Access Time of Disposition: 14:53 Quality - Quality Measures Quality Measures: N/A - Blood Pressure Screening View Details: Yes Does Patient Have Any of the Following: No Blood Pressure Classification: Pre-Hypertensive BP Reading Systolic Measurement: 136 Diastolic Measurement: 79 Screening for High Blood Pressure: < Pre-Hypertensive BP, F/U Documented > [G8950] Pre-Hypertensive Follow-up Interventions: Referral to alternative/primary care provider.
[2019-06-06 12:44] LABS: BASO % 0.5 % (0-6); EOS % 4.3 % (0-6); HEMATOCRIT 43.1 % (35.0-47.0); HEMOGLOBIN 14.2 gm/dl (11.6-16.0); LYMPH % 26.6 % (16-45); MEAN CELL VOLUME 88.3 fl (81-97); MEAN CORPUSCULAR HEMOGLOBIN 29.1 pg (27-33); MEAN CORPUSCULAR HGB CONC 32.9 g/dl (32-36); MEAN PLATELET VOLUME 9.1 fl (7.4-10.4); MONO % 6.6 % (0-9); PLATELET COUNT 323 K/uL (130-400); RED BLOOD COUNT 4.88 M/uL (3.80-5.40); RED CELL DISTRIBUTION WIDTH 12.5 % (11.5-14.5); WHITE BLOOD COUNT W/O DIFF 5.8 K/uL (4.2-12.2)
[2019-06-06 13:00] LABS: INR 0.9; PARTIAL THROMBOPLASTIN TIME 26.8 SECONDS (24.5-39.1); PROTHROMBIN TIME (PATIENT) 9.6 SECONDS (9.5-12.1)
[2019-06-06 13:03] LABS: BLOOD UREA NITROGEN 8 mg/dL (6-20); CREATININE 0.9 mg/dL (0.5-0.9); EST GLOMERULAR FILTRATION RATE > 60 mL/min
[2019-06-06 13:04] LABS: TOTAL PROTEIN 7.4 g/dL (6.6-8.7)
[2019-06-06 13:06] LABS: GLUCOSE,RANDOM 101 mg/dL (74-109)
[2019-06-06 13:08] LABS: ALT/SGPT 23 U/L (<33)
[2019-06-06 13:09] LABS: ALB/GLOB RATIO 1.4 (1.1-1.8); ALBUMIN 4.3 g/dL (4.0-5.0); ALKALINE PHOSPHATASE 47 U/L (35-104); AST/SGOT 20 U/L (10.0-35.0)
[2019-06-06 13:12] LABS: NTpro B-NATRIURETIC PEPTIDE 29.25 pg/mL (<125)
--- NOTE | 2019-06-06 13:57 | RADIOLOGY REPORT ---
EXAMINATION: Two View Chest Radiographs EXAM DATE: 06/06/2019 1:14 PM TECHNIQUE: Frontal and lateral views INDICATION: CP COMPARISON: None ENCOUNTER: Not applicable FINDINGS: The cardiac and mediastinal silhouette are unremarkable. Lungs are clear. No effusion or pneumothorax . Pulmonary vasculature is unremarkable. IMPRESSION: No acute cardiopulmonary findings. Dictated by: Otoniel Willis MD on 06/06/2019 1:54 PM. .
== END 2019-06-06 14:59 | disposition home or self-care (01) ==
LOC: ER 11:56
DX: R07.89 Other chest pain (principal); I10 Essential (primary) hypertension
CPT/HCPCS: 71046; 80053; 83880; 84484; 85025; 85610; 85730; 93005; 93010; 99285